=== PATIENT | male | born 1950 | race Caucasian/White ===

== ENCOUNTER → 2017-10-25 | Emergency (ER) | payer MEDICARE ==
[~2017-10-25] VITALS: Ht 167.6 cm; Wt 68.0 kg
[~2017-10-25] MED LIST: ASPIR-LOW81 MG PO; BACLOFEN5 MG PO; FAMOTIDINE20 MG PO; LORAZEPAM0.5 MG PO; METOPROLOL TART25 MG PO; MILK OF MA400 MG/5 M PO; MS CONTIN15 MG PO; OXYCODONE HCL10 MG PO; PRAVASTATIN SOD40 MG PO; ZOFRAN ODT4 MG PO
== END ==
LOC: ED 04:41
DX: S09.90XA Unspecified injury of head, initial encounter (principal); S16.1XXA Strain of muscle, fascia and tendon at neck level, initial encounter; I10 Essential (primary) hypertension; Z87.891 Personal history of nicotine dependence; Z88.5 Allergy status to narcotic agent; Z79.82 Long term (current) use of aspirin; Z79.899 Other long term (current) drug therapy; W06.XXXA Fall from bed, initial encounter
CPT/HCPCS: 70450; 72125; 99284